=== PATIENT | female | born 1965 | race Caucasian/White ===

== ENCOUNTER → 2019-05-07 11:52 | Outpatient (CLI) | payer MEDICAID, SELFPAY ==
--- NOTE | 2019-05-07 12:04 | XR_ITS ---
PROCEDURE: XR CHEST 2V CLINICAL HISTORY: pneumonia Follow-up pneumonia COMPARISON: No exams were available for comparison FINDINGS: The cardiomediastinal silhouette and pulmonary vascularity are within normal limits. There is reticular consolidation in the right upper lobe consistent with pneumonia. There are no previous exams of made available for comparison. No effusions. The left lung is clear. No acute bony abnormalities. IMPRESSION: Right upper lobe pneumonia Dictated by: Amarjit Godinez MD 05/07/2019 12:39 Electronically signed by Amarjit Godinez MD in [place] 05/07/2019 12:39
== END ==
PROVIDERS: PCP Physician Assistant; Visit Provider Nurse Practitioner Family
DX: J18.9 Pneumonia, unspecified organism (principal)
CPT/HCPCS: 71046